=== PATIENT | female | born 1960 | race Caucasian/White ===

== ENCOUNTER 2022-03-23 20:05 | Emergency (ER) | payer MEDICARE, MEDICAID ==
[2022-03-23] MEDS ORDERED: Levothyroxine 112 MCG Tab PO ONE (21:17)
== END 2022-03-23 22:06 | disposition home or self-care (01) ==
LOC: JP.ED 20:05
DX: E03.9 Hypothyroidism, unspecified (principal); F15.10 Other stimulant abuse, uncomplicated; J44.9 Chronic obstructive pulmonary disease, unspecified; E66.9 Obesity, unspecified; Z68.43 Body mass index [BMI] 50.0-59.9, adult; F17.210 Nicotine dependence, cigarettes, uncomplicated; Z79.899 Other long term (current) drug therapy
CPT/HCPCS: 99282; 99283; A9270-GY